=== PATIENT | male | born 1980 | race Caucasian/White ===

== ENCOUNTER 2019-03-23 17:32 | Emergency (ER) | payer OTHER ==
[~2019-03-23] VITALS: Ht 172.7 cm; Wt 98.4 kg
[2019-03-23 17:37] VITALS: Ht 172.7 cm; Wt 98.4 kg
[2019-03-23 18:53] VITALS: BP 133/83
== END 2019-03-23 18:53 | disposition home or self-care (01) ==
LOC: ED 17:32
DX: L03.113 Cellulitis of right upper limb (principal); W57.XXXA Bitten or stung by nonvenomous insect and other nonvenomous arthropods, initial encounter; Y93.89 Activity, other specified; Y92.89 Other specified places as the place of occurrence of the external cause; Y99.8 Other external cause status